=== PATIENT | male | born 2005 ===

== ENCOUNTER 2024-10-11 10:42 | Emergency (ER) | payer SELFPAY ==
[2024-10-11] MEDS: Albuterol Sulfate 90 MCG 8 GM INHALER 12 PUFF INHALE (10:58)
[2024-10-11 10:59] VITALS: PULSE 78; RESP 26; O2SAT 95
[2024-10-11 11:02] VITALS: BP 120/84; BP 136/75; PULSE 70; PULSE 96; RESP 16; TEMP 36.3; O2SAT 100; O2SAT 96; BMI 19.6
[2024-10-11 11:08] VITALS: RESP 16
--- NOTE | 2024-10-11 11:09 | PC.NURSE ---
patient a&ox3, rr equal/non labored lungs currently clear, vital signs stable, RT gave patient puffs of albuterol after he finished the updraft by ems. pt states hes feeling much better. pt currently awaiting provider evaluation.
--- NOTE | 2024-10-11 11:29 | PC.NURSE ---
xray came to look for patient to do chest xr, bed is empty and patients belongings that were with him are gone. will notify charge as he was not found in bathrooms or elsewhere.
--- NOTE | 2024-10-11 11:42 | ED.GENADULT ---
HPI - General Adult General Chief complaint: Asthma Stated complaint: SOB,ON NRB,ALBUTEROL GIVEN PER EMS Time Seen by Provider: 10/11/24 10:55 Source: patient and EMS Mode of arrival: EMS Limitations: no limitations History of Present Illness ED Provider: jalen schulz radiology physician HPI narrative: Patient is a 18-year-old male who presents emergency department via EMS for evaluation, has been experiencing shortness of breath over the past few days history of asthma. Had diffuse wheezing per EMS but O2 saturation was 95% on room air, he has recently ran out of his albuterol inhaler. Albuterol nebulizer was administered pre-hospital and he had reported symptomatic improvement. Denies trauma, fevers, chills, URI symptoms, sore throat, difficulty swallowing, neck pain, chest pain, palpitations, nausea, vomiting, abdominal pain, numbness or tingling of the extremities, recent lower extremity pain or swelling. Denies alcohol use, recreational drugs, or smoking tobacco. Related Data Allergies Allergy/AdvReac Type Severity Reaction Status Date / Time No Known Allergies Allergy Verified 10/11/24 11:04 Review of Systems Review of Systems: Yes all other systems are reviewed and are negative [facility] Past Medical History Attestation statement: The following information was validated with the patient. Source: old records reviewed Medical History Asthma Social History Social History Smoked in Last 30 Days: No Use of substances other than those prescribed or required for medical reasons: No Substance Use Type: Marijuana Advance Directives: No Advance Directives Information Provided: No Do you have a plan to hurt others: No Plan Physical Exam ED Vital Signs: Vital Signs - 24 hr 10/11/24 10:59 10/11/24 11:02 10/11/24 11:08 Temperature 97.3 F Pulse Rate 78 96 Respiratory Rate 26 H 16 16 Blood Pressure 136/75 Pulse Oximetry 96 Oxygen Delivery Method Room Air BMI result Body Mass Index 19.6 Appearance: Alert.?Oriented to person, place and time. No acute distress.?Normal affect. Eyes: Pupils equal, round and reactive to light.? ENT: Pharynx normal.?? Neck: Normal inspection.? Neck supple.?? CVS: Heart sounds normal. Normal heart rate and rhythm.? Pulses normal.?? Respiratory: No respiratory distress.? Lung sounds clear to auscultation bilaterally.? Abdomen: Soft and non-tender. Normoactive bowel sounds. Skin: Skin warm and dry.? Normal skin color.? Extremities: No lower extremity edema.? No calf ttp? Neuro: Moves all extremities spontaneously. Sensation intact bilaterally. No focal neuro deficits. Ambulates with normal steady gait. Course Reevaluation(s) Reevaluation #1: Patient was seen by respiratory therapy in the emergency department, provided with an albuterol inhaler in the department. Nursing staff have advised me that patient likely left without completing treatment, has not been at bedside over the past 15 minutes, does not present for Radiology to perform his chest x-ray. Time: 11:53 Medications Administered Discontinued Medications Generic Name Dose Route Start Last Admin Trade Name Freq PRN Reason Stop Dose Admin Albuterol Sulfate 12 puff 10/11/24 10:52 10/11/24 10:58 Albuterol Sulfate 90 Mcg 8 Gm Inhaler INHALE 10/11/24 10:53 12 puff ONCE ONE Administration Medical Decision Making Medical Decision Making [facility] Narrative: Patient is a 18-year-old male who presents emergency department via EMS for evaluation of shortness of breath, concern for asthma exacerbation recently ran out of his albuterol inhaler. Has had symptomatic improvement after receiving albuterol nebulizer pre-hospital from EMS. On arrival he is overall well-appearing, nontoxic, afebrile, no hypoxia tachypnea, no tachycardia no respiratory distress. No rash or lesions, urticaria, or evidence of angioedema to suggest allergic reaction/anaphylaxis. No swallowing difficulties to suggest aspiration. No associated chest pain, lower extremity redness pain or swelling, history of VTE/malignancy to suggest ACS. CHF, pericardial effusion, or pulmonary embolism. No palpitations or history of known arrhythmias. No recent trauma or injury, no tracheal deviation, unlikely tension pneumothorax. Will obtain chest x-ray to exclude consolidation infiltrate that might favor pneumonia, viral serologies, anticipate otherwise that he will be stable for discharge home, will send prescription for albuterol inhaler Differential Diagnosis Differential Diagnoses: The differential diagnosis associated with the presentation includes (See narrative above) Admission/Observation Consideration of admission/observation: Escalation of care including admission/observation considered Independent Historian Clinical information obtained from an independent historian. History obtained from or confirmed by: EMS External Record Review External record reviewed: Outpatient record Prescription Management I considered prescription management with: Other (See narrative above) Discharge Plan Discharge Clinical Impression: Shortness of breath Patient Disposition: Left W/O Completing Treatment
--- NOTE | 2024-10-11 11:47 | PC.NURSE ---
charge notified pt was not found/security notified as well as provider. pt will be discharged as left without completing treatment if he is not found
[2024-10-11 12:03] VITALS: BP 136/75; PULSE 96; RESP 16; TEMP 36.3; O2SAT 96
== END 2024-10-11 12:04 | disposition left against medical advice (07) ==
PROVIDERS: Emergency Provider Emergency Medicine
DX: R06.02 Shortness of breath (principal)
CPT/HCPCS: 94640; 99284